=== PATIENT | male | born 1995 | race Caucasian/White ===

== ENCOUNTER 2017-04-05 11:20 | Emergency (ER) | payer OTHER ==
[~2017-04-05] VITALS: Ht 167.6 cm; Wt 97.7 kg
[2017-04-05] MEDS ORDERED: HALO100V4 IM (11:33)
[2017-04-05] MEDS ORDERED: DIVA250T25 PO (11:33)
[2017-04-05] MEDS ORDERED: CLON.2 PO (11:33)
[2017-04-05] MEDS ORDERED: ENAL20 PO (11:33)
[2017-04-05] MEDS ORDERED: CHLO50 PO (11:33)
[2017-04-05] MEDS ORDERED: RISP1 PO (11:33)
[2017-04-05] MEDS ORDERED: DIPH50 PO (11:33)
[2017-04-05] MEDS ORDERED: ALBU8.5H8 IH (11:33)
[2017-04-05] MEDS ORDERED: TRAZ-147 PO (11:33)
[2017-04-05] MEDS ORDERED: CLON-570 PO (11:33)
[2017-04-05] MEDS ORDERED: FLUT110HFA IH (11:33)
[2017-04-05] MEDS ORDERED: BENZ1TAB10 PO (11:33)
[2017-04-05] MEDS ORDERED: SODIUM CHLORIDE 0.9% 1,000 ML IV ONE (12:45)
[2017-04-05] MEDS ORDERED: ONDANSETRON HCL 4 MG/2 ML VIAL IVP ONE (12:45)
[2017-04-05 12:49] LABS: BASOPHILS # (AUTO) 0.01 K/uL (0.00-0.20); BASOPHILS % (AUTO) 0.2 % (0.0-2.0); EOSINOPHILS # (AUTO) 0.04 K/uL (0.00-0.70); EOSINOPHILS % (AUTO) 0.58 % (1.0-6.0); HEMATOCRIT 42.5 % (41-53); HEMOGLOBIN 14.4 g/dL (13.5-17.5); LYMPHOCYTES # (AUTO) 1.3 K/uL (1.0-4.8); LYMPHOCYTES % (AUTO) 18.3 % (22.0-44.0); MEAN CORPUSCULAR HEMOGLOBIN 29.4 pg (26.0-34.0); MEAN CORPUSCULAR HGB CONC 33.8 G/dL (31.0-37.0); MEAN CORPUSCULAR VOLUME 87 fL (80-100); MONOCYTES # (AUTO) 0.7 K/uL (0.1-1.0); NEUTROPHILS # (AUTO) 5.2 K/uL (1.8-7.7); NEUTROPHILS % (AUTO) 72.1 % (40.0-70.0); PLATELET COUNT (AUTO) 228 K/uL (150-450); RED BLOOD CELL COUNT(AUTO) 4.88 MIL/uL (4.50-5.90); WHITE BLOOD COUNT (AUTO) 7.2 K/uL (4.5-11.0)
[2017-04-05 13:02] LABS: ANION GAP 14 mmol/L (8-16); CALCIUM, TOTAL 9.1 mg/dL (8.8-10.5); CARBON DIOXIDE 23 mmol/L (22-29); CHLORIDE 100 mmol/L (98-107); CREATININE 0.75 mg/dL (0.60-1.30); GLOMERULAR FILTR. RATE CALC > 60 mL/min (>60); POTASSIUM 3.6 mmol/L (3.5-5.1); SODIUM SERUM 137 mmol/L (136-145); UREA NITROGEN, BLOOD 4 mg/dL (7-18)
[2017-04-05 13:10] LABS: ALANINE AMINOTRANSFERASE 48 U/L (12-78); ALBUMIN 4.3 g/dL (3.4-5.0); AMYLASE 87 U/L (25-115); ASPARTATE AMINOTRANSFERASE 40 U/L (15-37); BILIRUBIN,TOTAL 0.6 mg/dL (0.1-1.0); TOTAL PROTEIN, SERUM 8.8 g/dL (6.4-8.2)
[2017-04-05] MEDS ORDERED: DICYCLOMINE HCL 20 MG TABLET PO ONE (15:45)
[2017-04-05 16:38] VITALS: BP 123/77
== END 2017-04-05 17:33 | disposition home or self-care (01) ==
LOC: EMS 11:29
DX: R11.2 Nausea with vomiting, unspecified (principal); R10.31 Right lower quadrant pain; J45.909 Unspecified asthma, uncomplicated; I10 Essential (primary) hypertension
CPT/HCPCS: 36415; 80053; 82150; 83690; 85025; 96361; 96374; 99284; J2405; J7030